=== PATIENT | female | born 1940 | race Caucasian/White ===

== ENCOUNTER → 2018-10-03 | Outpatient (CLI) | payer MEDICARE, BC ==
[2015-07-25 13:25] VITALS: BP 154/78
[~2018-10-03] MED LIST: ASPIRIN E.C. 8181 MG PO; CLARITIN10 M1 PO; MOBIC7.5 MG PO
== END ==
LOC: MAMMO 13:00
DX: Z12.31 Encounter for screening mammogram for malignant neoplasm of breast (principal)